=== PATIENT | male | born 1985 | race Two or more races ===

== ENCOUNTER 2018-11-11 19:44 | Emergency (ER) | payer MEDICAID ==
[~2018-11-11] VITALS: Ht 165.1 cm; Wt 65.8 kg
[2018-11-11 20:01] VITALS: Ht 165.1 cm; Wt 65.8 kg
[2018-11-11 21:00] LABS: BASOPHIL % 0.1 % (0-2); PLATELET COUNT 219 x10^3mcL (130-400); RED CELL DISTRIBUTION WIDTH 13.2 % (11.5-14.5)
[2018-11-11 21:15] LABS: CARBON DIOXIDE 30.4 mmol/L (21-32); CHLORIDE SERUM 104 mmol/L (98-107); CREATININE SERUM 1.2 mg/dL (0.7-1.3); GFR1 > 60 mL/min; GLUCOSE SERUM 107 mg/dL (74-106); SODIUM SERUM 140 mmol/L (136-145)
[2018-11-11 21:19] LABS: ALBUMIN 3.5 g/dL (3.4-5.0); ALKALINE PHOSPHATASE 84 U/L (46-116); ALT/SGPT 25 U/L (16-63); AST/SGOT 4 U/L (15-37); BILIRUBIN TOTAL 0.79 mg/dL (0.20-1.00); TOTAL PROTEIN, SERUM 7.6 g/dL (6.4-8.2)
[2018-11-11 22:50] VITALS: BP 118/65
== END 2018-11-11 22:50 | disposition home or self-care (01) ==
LOC: ED 19:44
PROVIDERS: Emergency Medicine
DX: L03.116 Cellulitis of left lower limb (principal)
CPT/HCPCS: 90715; J1885; J2001; J3490; J7030

== ENCOUNTER 2018-11-13 12:20 | Inpatient (IN) | payer MEDICAID ==
[~2018-11-13] VITALS: Ht 167.6 cm; Wt 71.9 kg
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
[2018-11-13 13:16] LABS: BASOPHIL % 1.1 % (0-2); PLATELET COUNT 273 x10^3mcL (130-400); RED CELL DISTRIBUTION WIDTH 13.3 % (11.5-14.5)
[2018-11-13 13:25] LABS: CALCIUM 9.7 mg/dL (8.5-10.1); CARBON DIOXIDE 27.9 mmol/L (21-32); CHLORIDE SERUM 102 mmol/L (98-107); CREATININE SERUM 1.2 mg/dL (0.7-1.3); GFR1 > 60 mL/min; GLUCOSE SERUM 88 mg/dL (74-106); POTASSIUM SERUM 3.8 mmol/L (3.5-5.1); SODIUM SERUM 140 mmol/L (136-145)
--- NOTE | 2018-11-13 13:27 | NUR ---
IV ACCESS STARTYED ASEPTICALLY FLUSHED with ns.ivf started.iv meds given per er ordkatya.pt tolerated procedures with no incidents.awaits test results,reevaluations.newton ribeiro.spouse bedside.
[2018-11-13 13:30] LABS: ALBUMIN 3.6 g/dL (3.4-5.0); ALKALINE PHOSPHATASE 85 U/L (46-116); ALT/SGPT 21 U/L (16-63); AST/SGOT 7 U/L (15-37); BILIRUBIN TOTAL 0.57 mg/dL (0.20-1.00)
[2018-11-13 13:32] LABS: TOTAL PROTEIN, SERUM 8.5 g/dL (6.4-8.2)
--- NOTE | 2018-11-13 13:58 | NUR ---
resting er # 11 hob @ 45 degrees sr up,newton ribeiro.pt tolerated procedures with no incidents.awaits md consult,bed assignment,reevaluations.spouse bedside.
[2018-11-13 14:12] LABS: CHOLESTEROL/HDL RATIO 4.3; MAGNESIUM 2.3 mg/dL (1.8-2.4); PHOSPHOROUS 3.2 mg/dL (2.5-4.9)
[2018-11-13 14:21] LABS: T3 TOTAL 1.27 ng/mL
[2018-11-13 14:32] LABS: FREE T4 0.97 ng/dL (0.76-1.46); FREE THYROXINE INDEX 2.9 ug/dL (1.4-4.5); T4(THYROXINE) 8.1 ug/dL (4.7-13.3)
--- NOTE | 2018-11-13 14:38 | NUR ---
PT ENDORSED TO/ACCEPTED BY [facility],REEVALUATIONS.
--- NOTE | 2018-11-13 14:48 | NUR ---
RECEIVED PT FROM ED VIA [facility], CAME IN DUE TO LEFT KNEE SWELLING X4 DAYS. AAXO4. DENIES HEADACHE/DIZZINESS. NO SOB NOTED, LUNG SOUNDS CTA. DENIES CHEST PAIN/PRESSURE, NH=56. DENIES ABDOMINAL DISCOMFORT. BOWEL SOUNDS ACTIVE. W/ LEFT KNEE SWELLING, ERYTHEMA AND WARM TO TOUCH. IV SITE PATENT AND INTACT ON THE RAC, GAUGE 20. RECEIVED PT FROM ED W/ VANCOMYCIN AND NS ONGOING. SIDE RAILS UPX2. CALL LIGHT ON REACH. AND KIDS AT BEDSIDE. ENDORSED TO PRIMARY NURSE HERACLIO FOR CONTINUITY OF CARE
[2018-11-13 15:01] VITALS: BP 118/73
[2018-11-13 15:08] VITALS: Ht 167.6 cm; Wt 71.9 kg
--- NOTE | 2018-11-13 17:27 | NUR ---
PT SITTING UP IN BED EATING DINNER. NO ACUTE DISTRESS. AAOX4. RESP EVEN AND UNLABORED ON RA. ERYTHEMA AND SWELLING TO L KNEE, ALICIA. PT DENIES PAIN AT THIS TIME. IVF INFUSING, NO REDNESS OR SWELLING NOTED. CALL LIGHT WITHIN REACH. HOB ELEVATED. WILL CONTINUE TO MONITOR.
--- NOTE | 2018-11-13 18:30 | NUR ---
PT GETTING US OF LOWER EXTREMITY DONE AT THIS TIME. NO ACUTE DISTRESS. NO C/O PAIN. IVF INFUSING, NO REDNESS OR SWELLING NOTED. BED IN LOW POSITION, CALL LIGHT WITHIN REACH. WILL ENDORSE TO ONCOMING SHIFT.
--- NOTE | 2018-11-13 19:28 | NUR ---
AWAKE AND ALERT, ORIENTED TO NAME, PLACE, TIME AND SITUATION. SPEECH CLEAR AND APPROPRIATE. BREATHING EVEN AND UNLABORED ON ROOM AIR. WATCHING TV AT THIS TIME. NOTED QUARTER SIZE AREA OF DARK DISCOLORATION TO LEFT KNEE, SURROUNDING AREA WITH REDNESS. AREA IS MARKED OFF WITH SKIN PEN. DENIES HAVING PAIN. SWELLING NOTED TO LEFT KNEE, TRACE EDEMA TO LEFT FOOT, ELEVATED ON PILLOW. IVF INFUSING WELL.
[2018-11-13 20:06] VITALS: BP 114/65
--- NOTE | 2018-11-13 20:40 | NUR ---
INSTRUCTED NEED URINE SPECIMEN.
[2018-11-14 00:02] LABS: microscopic required? NO
[2018-11-14 00:34] LABS: UA SPECIFIC GRAVITY 1.025 (1.005-1.035); urine erythrocyte NEGATIVE (NEGATIVE)
--- NOTE | 2018-11-14 01:07 | NUR ---
EYES CLOSED, BREATHING EVEN AND UNLABORED ON ROOM AIR. CALL LIGHT WITHIN EASY REACH. IVF INFUSING WELL
[2018-11-14 01:28] LABS: AMPHETAMINE QUAL UR NONE DETECTED (See below)
[2018-11-14 04:49] VITALS: BP 107/61
[2018-11-14 06:27] LABS: CALCIUM 8.6 mg/dL (8.5-10.1); CARBON DIOXIDE 26.3 mmol/L (21-32); CHLORIDE SERUM 106 mmol/L (98-107); CREATININE SERUM 1.1 mg/dL (0.7-1.3); GFR1 > 60 mL/min; GLUCOSE SERUM 95 mg/dL (74-106); POTASSIUM SERUM 4.1 mmol/L (3.5-5.1); SODIUM SERUM 141 mmol/L (136-145)
--- NOTE | 2018-11-14 06:28 | NUR ---
EYES CLOSED, EASILY AWAKENED. IVF INFUSING WELL. BREATHING EVEN AND UNLABORED. SLEPT THROUGH MOST OF SHIFT
[2018-11-14 06:52] LABS: BASOPHIL % 0.4 % (0-2); PLATELET COUNT 226 x10^3mcL (130-400); RED CELL DISTRIBUTION WIDTH 13.1 % (11.5-14.5)
--- NOTE | 2018-11-14 07:12 | NUR ---
EYES CLOSED, BREATHING UNLABORED. ENDORSED TO NURSE PULLIAM
[2018-11-14 07:30] VITALS: BP 109/60
--- NOTE | 2018-11-14 07:35 | NUR ---
RECEIVED PT IN NO ACUTE DISTRESS. SLEEPING BUT EASILY AROUSABLE. RESP EVEN AND UNLABORED ON RA. NO PAIN NOTED. IVF INFUSING, NO REDNESS OR SWELLING NOTED. ERYTHEMA AND SWELLING TO L KNEE, ELEVATED WITH PILLOW. BED IN LOW POSITION, CALL LIGHT WITHIN REACH. WILL CONTINUE TO MONITOR.
--- NOTE | 2018-11-14 12:05 | NUR ---
PT SITTING UP IN BED WATCHING TV. NO ACUTE DISTRESS. NO C/O PAIN TO L KNEE. IVF INFUSING, NO REDNESS OR SWELLING TO IV SITE. CALL LIGHT WITHIN REACH. WILL CONTINUE TO MONITOR.
--- NOTE | 2018-11-14 13:52 | NUR ---
PT AMBULATED TO BATHROOM AND BACK TO BED, GAIT STEADY. NO C/O DIFFICULTY AMBULATING WITH LLE, GAIT STEADY. DENIES PAIN. WILL CONTINUE TO MONITOR.
[2018-11-14 16:45] VITALS: BP 122/66
--- NOTE | 2018-11-14 18:52 | NUR ---
PT RESTING IN BED. NO ACUTE DISTRESS. AAOX4. RESP EVEN AND UNLABORED ON RA. SWELLING AND ERYTHEMA TO L KNEE DECREASED. LLE ELEVATED WITH PILLOW. NO C/O PAIN. CRUTCHES AT BEDSIDE. INFORMED PT OF NPO STATUS BY MIDNIGHT TONIGHT FOR PROCEDURE IN AM, PT VERBALIZED UNDERSTANDING. IVF INFUSING, NO REDNESS OR SWELLING. BED IN LOW POSITION, CALL LIGHT WITHIN REACH. WILL ENDORSE TO ONCOMING SHIFT.
--- NOTE | 2018-11-14 19:17 | NUR ---
AWAKE AND ALERT, ORIENTED TO NAME, PLACE, TIME AND SITUATION. BREATHING EVEN AND UNLABORED ON ROOM AIR. IVF OF NS AT 100ML/HR INFUSING WELL. DENIES HAVING PAIN. LESS SWELLING NOTED TO LEFT KNEE, LATERAL SIDE OF LEFT KNEE SLIGHTLY PINK IN COLOR. CALL LIGHT WITHIN EASY REACH.
[2018-11-14 20:58] VITALS: BP 115/63
--- NOTE | 2018-11-14 23:25 | NUR ---
EYES CLOSED, BREATHING EVEN AND UNLABORED ON ROOM AIR. CALL LIGHT WITHIN EASY REACH. IVF INFUSING WELL.
[2018-11-15 05:32] VITALS: BP 114/64
--- NOTE | 2018-11-15 05:33 | NUR ---
WITH NURSE SINGH HELPING IN TRANSLATING, EXPLAINED TO PT PHYSICIAN WILL COME TODAY TO EXPLAIN PROCEDURE. REINFORCED NEED TO WEAR GOWN AND REMOVE UNDERGARMENTS. REINFORCED NEED NOT TO EAT OR DRINK ANYTHING EXCEPT MEDICATIONS GIVEN BY NURSE. VERBALIZED UNDERSTANDING.
--- NOTE | 2018-11-15 07:21 | NUR ---
IN NO ACUTE DISTRESS. BREATHING UNLABORED. KEPT NPO SINCE MIDNIGHT. ENDORSED TO NURSE CALVIN. IV TO RIGHT FOREARM INTACT, IVF INFUSING WELL
--- NOTE | 2018-11-15 07:22 | NUR ---
RECEIVED BEDSIDE REPORT, PATIENT ALERT/ORIENTED, ABLE TO MAKE NEEDS KNOWN AND FOLLOW COMMANDS, DENIES HEADACHE OR CP. LUNGS CTA, NO RESP DISTRESS NOTED ON RA. BREAHTING E/U. BOWEL SOUNDS ACTIVE, DENIES N/V. MARKED CELLULITIS/ERHYTHEMIA AND SWELLING TO LT KNEE. WARM TO TOUCH, NO ACTIVE DRAINAGE. DENIES PAIN AT THIS TIME. IV SITE TO RFA 22G, RUNNING NS AT 100ML/HR, INFUSING WELL SITE WNL. CALL LIGHT WITHIN REACH AND DEMONSTRATES UNDERSTANDING ON HOW TO USE.
[2018-11-15 07:30] LABS: CALCIUM 8.9 mg/dL (8.5-10.1); CARBON DIOXIDE 24.9 mmol/L (21-32); CHLORIDE SERUM 106 mmol/L (98-107); GFR1 > 60 mL/min; GLUCOSE SERUM 103 mg/dL (74-106); MAGNESIUM 2.1 mg/dL (1.8-2.4); POTASSIUM SERUM 4.1 mmol/L (3.5-5.1); SODIUM SERUM 141 mmol/L (136-145)
[2018-11-15 07:36] LABS: BASOPHIL % 0.6 % (0-2); PLATELET COUNT 275 x10^3mcL (130-400); RED CELL DISTRIBUTION WIDTH 13.5 % (11.5-14.5)
[2018-11-15 08:58] VITALS: BP 117/66
--- NOTE | 2018-11-15 12:23 | NUR ---
PER PATIENT, SURGEON SPOKE WITH HIM REGARDING PROCEDURE SCHEDULED THIS AFTERNOON AND ANSWERED HIS QUESTIONS/CONCERNS, OKAY TO SIGN CONSENT NOW. PLUMBING TECHNICIAN ID#[id number] USED VIA PHONE TO OBTAIN CONSENT FROM PATIENT. G PREOP WIPES GIVEN. CHECKLIST COMPLETED AND SIGNED CONSENT CHARTED.
--- NOTE | 2018-11-15 13:08 | NUR ---
Discount pharmacy card and list to low cost medical clinics given to patient by Franky Palumbo.
--- NOTE | 2018-11-15 15:25 | NUR ---
PATIENT OFF UNIT, WENT TO OR FOR I&D PROCEDURE. HEPLOCKED. NO SIGN OF ACUTE DISTRESS.
[2018-11-15 17:28] VITALS: BP 129/70
--- NOTE | 2018-11-15 17:30 | NUR ---
PATIENT BACK FROM OR, S/P I&D LT KNEE, DRESSING CDI. PATIENT STATES PAIN 3/10 AND TOLERABLE AT THIS TIME. VITALS TAKEN BY SPA TECHNICIAN. SISTER AT BEDSIDE. WILL CONT TO MONITOR.
--- NOTE | 2018-11-15 18:40 | NUR ---
PATIENT TOLERATED DINNER WELL, DENIES NAUSEA AT THIS TIME. STATES PAIN TO LT KNEE 5/10 AND TOLERABLE AT THIS TIME. DRESSING CDI. WILL CONT TO MONITOR AND ENDORSE TO NOC NURSE.
--- NOTE | 2018-11-15 19:30 | NUR ---
PT IS A/O X4. MED SURG. DENIES ANY CHEST PAIN OR PRESSURE. PULSES ARE PRESENT. TRACE EDEMA NOTED ON L KNEE. LUNGS CLEAR IN ALL FEILDS. ON RA, DENIES ANY SOB. EQUAL CHEST RISE AND FALL. NO SIGN OF RESP DISTRESS. BOWEL SOUNDS PRESENT x4. DENIES ANY ABD PAIN OR DISTRESS. ABD FLAT AND SOFT. VOIDS FREELY. DRESSING ON L KNEE POST I&D DONE TODAY, LIGHT DRAINAGE NOTED AND TRACED WITH SKIN MARKER, 3-1/2X5 CM. DENIES ANY PAIN AT THIS TIME. IV ON RFA INTACT AND PATENT. NO SIGN OF IRRITATION OR INFILTRATION NOTED. BED IS AT LOWEST SETTING. CALL LIGHT WITHIN REACH. AT BEDSIDE. WILL CONTINUE TO MONTIOR.
[2018-11-15 20:15] VITALS: BP 115/62
--- NOTE | 2018-11-16 00:39 | NUR ---
PT IS RESTING IN BED WITH BOTH EYES CLOSED. BREATHING EVEN AND UNALBORED. NO SIGN OF DISTRESS NOTED. IV INTACT. BED IS A LOWEST SETTING. CALL LIGHT WITHIN REACH. WILL CONTINUE TO MONTIOR.
[2018-11-16 06:00] VITALS: BP 101/61
[2018-11-16 06:28] LABS: BASOPHIL % 0.3 % (0-2); PLATELET COUNT 328 x10^3mcL (130-400)
--- NOTE | 2018-11-16 06:36 | NUR ---
PT IS RESTING IN BED. DENIES ANY PAIN OR DISTRESS. DRESSING ON L KNEE IS INTACT. NO MUCH DRAINING NOTED OUT OF MARKED DRESSING. NO ACUTE EVENT OCCURED AT NIGHT. IV INTACT. BED IS AT LOWEST SETTING. CALL LIGHT WITHIN REACH. WILL ENDORSE TO AM NURSE.
[2018-11-16 06:49] LABS: CALCIUM 9.6 mg/dL (8.5-10.1); CARBON DIOXIDE 26.5 mmol/L (21-32); CHLORIDE SERUM 105 mmol/L (98-107); GFR1 > 60 mL/min; GLUCOSE SERUM 100 mg/dL (74-106); MAGNESIUM 2.3 mg/dL (1.8-2.4); PHOSPHOROUS 4.8 mg/dL (2.5-4.9); POTASSIUM SERUM 4.9 mmol/L (3.5-5.1); SODIUM SERUM 140 mmol/L (136-145)
--- NOTE | 2018-11-16 07:30 | NUR ---
PATIENT A/OX4 ABLE TO MAKE NEEDS KNOWN AND FOLLOW COMMANDS. DENIES HEADACHE. LUNGS CTA, NO RESP DISTRESS NOTED ON RA, BREATHING E/U. BOWEL SOUNDS ACTIVE, DENIES N/V. PERIPHERLA PULSES PALPABLE. LT KNEE W/ DRESSING INTACT, NO ACTIVE DRAINAGE, MILD SWELLING. DENIES PAIN AT THIS TIME. IV ACCESS TO RFA, SITE WNL. CALL LIGHT WITHIN REACH.
[2018-11-16 08:12] VITALS: BP 111/54
--- NOTE | 2018-11-16 10:07 | NUR ---
PATIENT AMBULATING IN HALLWAY, STEADY GAIT.
[2018-11-16] MEDS ORDERED: CEPHALEXIN500 MG PO (11:34)
[2018-11-16 11:46] VITALS: BP 111/54
--- NOTE | 2018-11-16 13:28 | NUR ---
DISCHARGE INSTRUCTIONS AND PRESCIRPTION GIVEN, PATIENT VERBALIZED UNDERSTANDING. PHOTO TAKEN OF LT KNEE WOUND, MINIMAL SEROSANGUINOUS DRAINAGE, 4X4 AND TAPE DRESSING APPLIED. IV DC'D CATH INTACT. ALL QUESTIONS/CONCERNS ADDRESSED.
== END 2018-11-16 13:41 | disposition home or self-care (01) | DRG 951 ==
LOC: ED 12:20 → MU 13:32
PROVIDERS: Emergency Medicine; Surgery; ADMIT Internal Medicine
PROC: 0S9D0ZZ Drainage of Left Knee Joint, Open Approach (ICD-10-PCS; principal; 2018-11-15 16:00)
DX: L02.416 Cutaneous abscess of left lower limb (principal); F10.10 Alcohol abuse, uncomplicated; L03.116 Cellulitis of left lower limb; R03.0 Elevated blood-pressure reading, without diagnosis of hypertension; Z68.25 Body mass index [BMI] 25.0-25.9, adult
CPT/HCPCS: 84439; G0378; J0696; J1885; J2001; J2405; J2543; J2704; J3010; J3370; J3490; J7030; J7120; Q0092